=== PATIENT | female | born 2000 | race Hispanic/Latino ===

== ENCOUNTER 2024-05-23 20:24 | Emergency (ER) | payer OTHER ==
[~2024-05-23] VITALS: Ht 157.5 cm; Wt 124.0 kg
[~2024-05-23 20:24] MED LIST: NORCO 5-325 TA1 EACH PO
[2024-05-23] MEDS ORDERED: FOLIC ACID0.4 MG (20:47)
[2024-05-23 20:59] LABS: BASOPHILS 0.5 % (0-2); EOSINOPHILS 1.4 % (0-6); HEMATOCRIT 37.1 % (35.0-50.0); HEMOGLOBIN 12.9 g/dL (12.0-18.0); LYMPHOCYTES 36.2 % (24-44); MCH 30.2 (27-36); MCHC 34.8 g/dl (30-36); MONOCYTES 5.5 % (0-12); NEUTROPHILS 56.4 % (39-80); PLATELET COUNT 314 K/uL (140-440); RBC 4.26 M/ul (4.3-5.7); RDW 12.9 (10.5-15.0)
[2024-05-23 20:59] LABS: BILIRUBIN, URINE NEGATIVE (negative); BLOOD/HGB, URINE LARGE (Negative); KETONE, URINE NEGATIVE (Negative); LEUK ESTERASE, URINE NEGATIVE (negative); NITRITE, URINE NEGATIVE (negative)
[2024-05-23 21:06] LABS: BACTERIA, URINE RARE /hpf (negative); CASTS, URINE NONE SEEN \\lpf; COLLECTION TYPE, URINE CLEAN CATCH; CRYSTALS, URINE NONE SEEN (0-1+); EPITHELIAL CELLS, URINE SQUAMOUS 1+ /lpf (0-1+); RED BLOOD CELLS, URINE 21-40 /hpf (0-5); REFLEX CULTURE, URINE No (No)
[2024-05-23 21:24] LABS: ABO B; RH POSITIVE
[2024-05-23 21:43] LABS: ANION GAP 14.7 (7-21); BUN/CREATININE RATIO 15.27 (6.0-28.6); CALCIUM 9.3 mg/dL (8.5-10.1); CREATININE, SERUM 0.72 mg/dL (0.55-1.02); POTASSIUM 3.7 mmol/L (3.5-5.1)
[2024-05-23 23:17] VITALS: BP 97/54
== END 2024-05-23 23:20 | disposition home or self-care (01) ==
LOC: ED 20:24
PROVIDERS: Emergency Medicine
DX: O20.0 Threatened abortion (principal); Z3A.01 Less than 8 weeks gestation of pregnancy; Z79.899 Other long term (current) drug therapy
CPT/HCPCS: 36415; 76801; 76817; 80048; 81001; 84702; 85025; 86900; 86901; 99284-25

== ENCOUNTER 2025-01-05 00:10 | Inpatient (IN) | payer OTHER ==
[~2025-01-05] VITALS: Ht 157.5 cm; Wt 125.2 kg
[~2025-01-05 00:10] MED LIST changes: +FOLIC ACID0.4 MG
[2025-01-05] MEDS ORDERED: CALCIUM CARBONATE 500 MG CHEW PO PRN ×2 (01:00→23:45)
[2025-01-05] MEDS ORDERED: MAGNESIUM HYDROXIDE/AL HYDROX 30 ML CUP PO PRN ×2 (01:00→23:45)
[2025-01-05] MEDS ORDERED: LACTATED RINGER'S 1,000 ML IV PRN (01:00)
[2025-01-05] MEDS ORDERED: TERBUTALINE SULFATE 1 MG/ML AMP SUB-Q PRN (01:00)
[2025-01-05 01:06] LABS: MCH 28.5 PG (25.6-32.2); MCHC 33.2 g/dL (32.2-35.5); MCV 85.8 fL (79.4-94.8); RBC 4.0 M/uL (3.93-5.22)
[2025-01-05 01:52] LABS: ABO B; ANTIBODY SCREEN NEGATIVE; RH POSITIVE
[2025-01-05 02:30] LABS: AMPHETAMINES, URINE NEGATIVE (NEGATIVE); BARBITURATES, URINE NEGATIVE (NEGATIVE); BENZODIAZEPINE, URINE NEGATIVE (NEGATIVE); CANNABINOID, URINE NEGATIVE (NEGATIVE); COCAINE, URINE NEGATIVE (NEGATIVE); ECSTASY, URINE NEGATIVE (NEGATIVE); FENTANYL, URINE NEGATIVE (NEGATIVE); METHADONE, URINE NEGATIVE (NEGATIVE); OPIATES, URINE NEGATIVE (NEGATIVE); OXYCODONE, URINE NEGATIVE (NEGATIVE); PHENCYCLIDINE, URINE NEGATIVE (NEGATIVE)
[2025-01-05 02:55] VITALS: BP 111/64
[2025-01-05] MEDS ORDERED: OXYTOCIN/0.9 % SODIUM CHLORIDE 30 UNITS/500 ML BAG IV SCH (08:15)
[2025-01-05] MEDS ORDERED: LIDOCAINE HCL 1% 30 ML SDV INJ PRN (08:15)
--- NOTE | 2025-01-05 10:11 | PR ---
[facility] [address] [facility] [place], [place] [address] Signed Progress Notes IP Datetime Report Generated by CPN: 01/05/2025 10:11 PROGRESS NOTES: [id number] Impression: Normal Progression of Labor; Reassuring Heart Rate Procedures: Sterile Vag Exam Plan: Continue Present Management Other Plans: Pt declines AROM Informed Consent Obtain: Vaginal Delivery VITAL SIGNS: [id number] Vital Signs: Reviewed; Within Normal Limits EXAM: [id number] Dilatation: 4.0 Effacement: 90 Station: -2 Contractions: q 1-4 min MEMBRANES: [id number] Comments: Pt seen and examined. doing well. Up to bathroom. On cervix exam, now 490/-2 bulging membranes. Pt declines AROM at this time. Considering epidural. Recheck _ 2 hours. FETUS A: [id number] FHR Baseline: 125 Accelerations: 15X15 Presentation: Vertex Comments on Fetus A: No evidence of metabolic acidosis FETUS B: [id number] Signing Physician: Enmanuel Beach DO Copies: ~ *Electronically Signed* 01/05/25 1011 ENMANUEL BEACH (ANALILIA) DO PATIENT NAME: ABUNDIO CARDENAS PROGRESS NOTE DATE OF : 00 PHYSICIAN: ENMANUEL BEACH) DO RPT #: [id number] REPORT IS CONFIDENTIAL AND NOT TO BE RELEASED WITHOUT AUTHORIZATION
[2025-01-05] MEDS ORDERED: ROPIVACAINE 0.2% 200 ML BAG ONE (14:29)
--- NOTE | 2025-01-05 15:29 | PR ---
[facility] [address] [place], [place] [address] Signed Progress Notes IP Datetime Report Generated by CPN: 01/05/2025 15:29 PROGRESS NOTES: [id number] Impression: Normal Progression of Labor Procedures: Artificial ROM Plan: Continue Present Management Other Plans: Pt declines AROM Informed Consent Obtain: Vaginal Delivery VITAL SIGNS: [id number] Vital Signs: Reviewed; Within Normal Limits EXAM: [id number] Dilatation: 7.0 Effacement: 90 Station: -1 Contractions: q5 MEMBRANES: [id number] Membranes Status: Ruptured Comments: Comfortable with epidural. AROM clear fluid. FETUS A: [id number] FHR Baseline: 125 Variability: Moderate 6-25bpm Accelerations: 15X15 Decelerations: None FHR Category: Category I Presentation: Vertex Comments on Fetus A: No evidence of metabolic acidosis FETUS B: [id number] Signing Physician: Meka Alanis MD Copies: ~ *Electronically Signed* 01/05/25 1529 MEKA ALANIS MD PATIENT NAME: ABUNDIO CARDENAS PROGRESS NOTE DATE OF : 00 PHYSICIAN: MEKA ALANIS MD RPT #: [id number] REPORT IS CONFIDENTIAL AND NOT TO BE RELEASED WITHOUT AUTHORIZATION
[2025-01-05] MEDS ORDERED: LACTATED RINGER'S 2,000 ML IV ONE (15:30)
[2025-01-05] MEDS ORDERED: LACTATED RINGER'S 500 ML IV PRN (15:30)
[2025-01-05] MEDS ORDERED: ePHEDrine sulfate 5 MG/ML SYRINGE IV PRN (15:30)
[2025-01-05] MEDS ORDERED: ROPIVACAINE 0.2% 200 ML BAG EPIDURAL SCH (15:30)
--- NOTE | 2025-01-05 17:12 | PR ---
[facility] [address] [facility] [place] [address] Signed Progress Notes IP Datetime Report Generated by CPN: 01/05/2025 17:12 PROGRESS NOTES: [id number] Impression: Normal Progression of Labor Procedures: Artificial ROM Plan: Augmentation Other Plans: Pt declines AROM Informed Consent Obtain: Vaginal Delivery VITAL SIGNS: [id number] Vital Signs: Reviewed; Within Normal Limits EXAM: [id number] Dilatation: 8.0 Effacement: 100 Station: -1 Contractions: 4 min MEMBRANES: [id number] Membranes Status: Ruptured Comments: Small amount of change, will initiate pitocin for aumentation. FETUS A: [id number] FHR Baseline: 125 Variability: Moderate 6-25bpm Accelerations: 15X15 Decelerations: None FHR Category: Category I Presentation: Vertex Comments on Fetus A: No evidence of metabolic acidosis FETUS B: [id number] Signing Physician: Meka Alanis MD Copies: ~ *Electronically Signed* 01/05/25 1712 MEKA ALANIS MD PATIENT NAME: ABUNDIO CARDENAS PROGRESS NOTE DATE OF : 00 PHYSICIAN: MEKA ALANIS MD RPT #: [id number] REPORT IS CONFIDENTIAL AND NOT TO BE RELEASED WITHOUT AUTHORIZATION
[2025-01-05] MEDS ORDERED: OXYTOCIN/0.9 % SODIUM CHLORIDE 500 ML IV SCH ×2 (17:15→23:45)
[2025-01-05] MEDS ORDERED: BENZOCAINE 60 ML AEROSOL TOP PRN (23:45)
[2025-01-05] MEDS ORDERED: LIDOCAINE 2% VISCOUS 6 ML SYR TOP ONE (23:45)
[2025-01-05] MEDS ORDERED: MAGNESIUM HYDROXIDE 30 ML UDC PO PRN (23:45)
[2025-01-05] MEDS ORDERED: ACETAMINOPHEN 325 MG TAB PO PRN (23:45)
[2025-01-05] MEDS ORDERED: IBUPROFEN 600 MG TAB PO PRN (23:45)
[2025-01-05] MEDS ORDERED: HYDROCORTISONE ACETATE 25 MG SUPP PR PRN (23:45)
[2025-01-05] MEDS ORDERED: WITCH HAZEL/GLYCERIN 1 EA PAD TOP PRN (23:45)
--- NOTE | 2025-01-06 08:43 | PR ---
[facility] [address] [facility] [place] [address] Signed PP Progress Notes Datetime Report Generated by CPN: 01/06/2025 08:42 SUBJECTIVE: [id number] Pain: Within Normal Limits Nausea/Vomiting: Denies Flatus: Yes Vital Signs: [id number] Vital Signs: Reviewed; Within Normal Limits Cardiovascular: Normal Respiratory: Normal Abdomen/Uterus: Normal Lochia: Normal Vulva/Perineum: Normal Breasts: Not Done CVA Tenderness: Not Done Extremities: Normal Incision: Not Applicable Progress: Normal IMPRESSION/PLAN/PROCEDURES: [id number] Impression: Normal Progression Plan: Continue Present Management Progress Notes: Recovering well, anticipate D/C tomorrow. Signing Physician: Meka Alanis MD Copies: ~ *Electronically Signed* 01/06/25 0842 MEKA ALANIS MD PATIENT NAME: ABUNDIO CARDENAS PROGRESS NOTE DATE OF : 00 PHYSICIAN: MEKA ALANIS MD RPT #: [id number] REPORT IS CONFIDENTIAL AND NOT TO BE RELEASED WITHOUT AUTHORIZATION
[2025-01-06] MEDS ORDERED: SENNOSIDES/DOCUSATE 1 EA TAB PO SCH (09:00)
--- NOTE | 2025-01-07 11:29 | PR ---
[facility] [address] [facility] [place], [place] [address] Signed PP Progress Notes Datetime Report Generated by CPN: 01/07/2025 11:29 SUBJECTIVE: [id number] Pain: Within Normal Limits Nausea/Vomiting: Denies Flatus: Yes Bowel Movement: Yes Vital Signs: [id number] Vital Signs: Reviewed; Within Normal Limits Cardiovascular: Not Done Respiratory: Normal Abdomen/Uterus: Normal Lochia: Normal Vulva/Perineum: Normal Breasts: Not Done CVA Tenderness: Not Done Extremities: Normal Incision: Not Applicable Progress: Normal Exam Comments: Breast and formula feeding IMPRESSION/PLAN/PROCEDURES: [id number] Impression: Normal Progression Plan: Continue Present Management; Discharge Procedures: None Progress Notes: Doing well. Pain and bleeding within normal limits. Some numbness on bottom of right foot which is improving. Brest and formula feeding. Desires D/CC home Signing Physician: Meka Alanis MD Copies: ~ *Electronically Signed* 01/07/25 1129 MEKA ALANIS MD PATIENT NAME: RONALDAUDREYABUNDIO PROGRESS NOTE DATE OF : 00 PHYSICIAN: MEKA ALANIS MD RPT #: [id number] REPORT IS CONFIDENTIAL AND NOT TO BE RELEASED WITHOUT AUTHORIZATION
== END 2025-01-07 14:50 | disposition home or self-care (01) | DRG 807 ==
LOC: FBC 00:10
PROVIDERS: ADMIT Obstetrics & Gynecology; ATTEND Obstetrics & Gynecology
PROC: 10E0XZZ Delivery of Products of Conception, External Approach (ICD-10-PCS; principal; 2025-01-05)
PROC: 0KQM0ZZ Repair Perineum Muscle, Open Approach (ICD-10-PCS; 2025-01-05)
PROC: 10907ZC Drainage of Amniotic Fluid, Therapeutic from Products of Conception, Via Natural or Artificial Opening (ICD-10-PCS; 2025-01-05)
PROC: 3E0R3BZ Introduction of Anesthetic Agent into Spinal Canal, Percutaneous Approach (ICD-10-PCS; 2025-01-05)
PROC: 00HU33Z Insertion of Infusion Device into Spinal Canal, Percutaneous Approach (ICD-10-PCS; 2025-01-05)
DX: O48.0 Post-term pregnancy (principal); Z37.0 Single live birth; O99.214 Obesity complicating childbirth; E66.01 Morbid (severe) obesity due to excess calories; Z3A.40 40 weeks gestation of pregnancy; O70.1 Second degree perineal laceration during delivery; Z79.899 Other long term (current) drug therapy
CPT/HCPCS: 01960; 36415; 80307; 85027; 86850; 86900; 86901; A9270; J7121